=== PATIENT | female | born 1995 | race Caucasian/White ===

== ENCOUNTER → 2020-11-08 14:57 | Observation (INO) | END | disposition home or self-care (01) | LOC: 1NENULAB | PROVIDERS: ADMIT Advanced Practice Midwife; ATTEND Advanced Practice Midwife ==

== ENCOUNTER → 2020-11-21 15:51 | Observation (INO) ==
[2020-11-21 13:46] LABS: Basophils % 0.3 %; Eosinophils % 0.2 %; Hematocrit 30.3 % (35.3-44.9); Hemoglobin 9.8 g/dL (11.5-15.4); Immature Granulocytes % 0.5 % (0-4); Lymphocytes # 1.2 K/mcL (0.6-4.6); Lymphocytes % 12.2 %; Mean Corpuscular HGB Conc 32.3 g/dL (31.6-35.5); Mean Corpuscular Hemoglobin 28.7 pg (28.0-33.3); Mean Corpuscular Volume 88.9 fL (83.0-100.0); Mean Platelet Volume 12.1 fL (9.4-12.4); Monocytes # 0.7 K/mcL (0.0-1.3); Monocytes % 7.2 %; Neutrophils # 7.5 K/mcL (1.6-8.9); Platelet Count 201 K/mcL (140-400); Red Blood Count 3.41 M/mcL (3.82-4.97); Red Cell Distribution Width 12.5 % (11.5-14.5); Segmented Neutrophils % 79.6 %; White Blood Count 9.5 K/mcL (4.3-11.1)
[2020-11-21 14:06] LABS: Alanine Aminotransferase 16 Units/L (7-52); Aspartate Amino Transferase 17 Units/L (13-39); BUN/Creatinine Ratio 15 (6-26); Blood Urea Nitrogen 8 mg/dL (6-20); Lactate Dehydrogenase 133 Units/L (140-271); eGFR For African Americans > 60 (> 60); eGFR For Non-African Americans > 60 (> 60)
[2020-11-21 15:28] LABS: Protein/Creatinine Ratio,Urine 0.17 mg/mg (0.00-0.20)
== END | disposition home or self-care (01) ==
LOC: 1NENULAB
PROVIDERS: ADMIT Obstetrics & Gynecology; ATTEND Obstetrics & Gynecology

== ENCOUNTER → 2020-11-22 18:55 | Observation (INO) ==
[2020-11-22 16:32] LABS: Bilirubin,Urine Negative (Negative); Blood,Urine Negative (Negative); Clarity,Urine Turbid (Clear); Color,Urine Yellow (Yellow); Glucose,Urine (UA) Normal (Normal); Ketones,Urine Negative (Negative); Leukocyte Esterase,Urine Negative (Negative); Nitrite,Urine Negative (Negative); Protein,Urine 30 mg/dL (Neg-Trace); Specific Gravity,Urine 1.026 (1.010-1.025)
[2020-11-22 16:36] LABS: Bacteria,Urine Few per hpf (None-Few); Mucus,Urine Few per lpf (None-Few); RBC,Urine 0-3 per hpf (0-3); Squamous Epithelial Cell,Urine Moderate per hpf (None-Few); WBC,Urine 0-3 per hpf (0-3)
[2020-11-22 16:54] LABS: Basophils % 0.3 %; Eosinophils % 0.1 %; Hematocrit 29.5 % (35.3-44.9); Hemoglobin 10.1 g/dL (11.5-15.4); Immature Granulocytes % 0.7 % (0-4); Lymphocytes # 1.5 K/mcL (0.6-4.6); Lymphocytes % 19.6 %; Mean Corpuscular HGB Conc 34.2 g/dL (31.6-35.5); Mean Corpuscular Hemoglobin 30.1 pg (28.0-33.3); Mean Corpuscular Volume 87.8 fL (83.0-100.0); Mean Platelet Volume 11.7 fL (9.4-12.4); Monocytes # 0.6 K/mcL (0.0-1.3); Monocytes % 8.1 %; Neutrophils # 5.4 K/mcL (1.6-8.9); Platelet Count 201 K/mcL (140-400); Red Blood Count 3.36 M/mcL (3.82-4.97); Red Cell Distribution Width 12.6 % (11.5-14.5); Segmented Neutrophils % 71.2 %; White Blood Count 7.6 K/mcL (4.3-11.1)
[2020-11-22 16:56] LABS: Protein/Creatinine Ratio,Urine 0.24 mg/mg (0.00-0.20)
[2020-11-22 17:13] LABS: Alanine Aminotransferase 15 Units/L (7-52); Aspartate Amino Transferase 15 Units/L (13-39); BUN/Creatinine Ratio 13 (6-26); Blood Urea Nitrogen 8 mg/dL (6-20); Lactate Dehydrogenase 152 Units/L (140-271); Uric Acid 5.4 mg/dL (2.3-7.6); eGFR For African Americans > 60 (> 60); eGFR For Non-African Americans > 60 (> 60)
[~2020-11-22 18:55] MED LIST: *HR* Labetalol 20 MG/4 ML SYRINGE IVP ONE; Betamethasone Acet/SodPhos 30 MG/5 ML VIAL IM SCH; LOVENOX SUBQ SCH; Prenatal Vit/FA 1 EACH TABLET PO SCH
== END | disposition home or self-care (01) ==
LOC: 1NENULAB
PROVIDERS: ADMIT Obstetrics & Gynecology; ATTEND Obstetrics & Gynecology

== ENCOUNTER 2020-11-24 12:01 | Inpatient (IN) ==
[2020-11-23 18:52] LABS: Basophils % 0.3 %; Hematocrit 29.9 % (35.3-44.9); Hemoglobin 9.7 g/dL (11.5-15.4); Immature Granulocytes % 1.1 % (0-4); Lymphocytes # 1.6 K/mcL (0.6-4.6); Lymphocytes % 17.2 %; Mean Corpuscular HGB Conc 32.4 g/dL (31.6-35.5); Mean Corpuscular Hemoglobin 28.4 pg (28.0-33.3); Mean Corpuscular Volume 87.7 fL (83.0-100.0); Mean Platelet Volume 11.6 fL (9.4-12.4); Monocytes # 0.7 K/mcL (0.0-1.3); Monocytes % 7.4 %; Neutrophils # 6.9 K/mcL (1.6-8.9); Platelet Count 202 K/mcL (140-400); Red Blood Count 3.41 M/mcL (3.82-4.97); Red Cell Distribution Width 12.7 % (11.5-14.5); White Blood Count 9.3 K/mcL (4.3-11.1)
[2020-11-23 19:05] LABS: Protein/Creatinine Ratio,Urine 0.61 mg/mg (0.00-0.20)
[2020-11-23 19:17] LABS: Alanine Aminotransferase 13 Units/L (7-52); Aspartate Amino Transferase 13 Units/L (13-39); BUN/Creatinine Ratio 16 (6-26); Blood Urea Nitrogen 10 mg/dL (6-20); Lactate Dehydrogenase 133 Units/L (140-271); Uric Acid 5.2 mg/dL (2.3-7.6); eGFR For African Americans > 60 (> 60); eGFR For Non-African Americans > 60 (> 60)
[2020-11-23 20:30] LABS: Bacteria,Urine Few per hpf (None-Few); Bilirubin,Urine Negative (Negative); Blood,Urine Negative (Negative); Calcium Oxalate Crystals,Urine Present per hpf; Clarity,Urine Turbid (Clear); Color,Urine Yellow (Yellow); Glucose,Urine (UA) Normal (Normal); Ketones,Urine Trace mg/dL (Negative); Leukocyte Esterase,Urine Negative (Negative); Mucus,Urine Few per lpf (None-Few); Nitrite,Urine Negative (Negative); Protein,Urine 100 mg/dL (Neg-Trace); Specific Gravity,Urine > 1.030 (1.010-1.025); Squamous Epithelial Cell,Urine Moderate per hpf (None-Few)
[2020-11-24 09:44] LABS: Protein/Creatinine Ratio,Urine 0.56 mg/mg (0.00-0.20)
[2020-11-24 10:18] LABS: Basophils % 0.4 %; Hematocrit 28.7 % (35.3-44.9); Hemoglobin 9.3 g/dL (11.5-15.4); Immature Granulocytes % 2.3 % (0-4); Lymphocytes # 1.1 K/mcL (0.6-4.6); Lymphocytes % 12.7 %; Mean Corpuscular HGB Conc 32.4 g/dL (31.6-35.5); Mean Corpuscular Hemoglobin 28.6 pg (28.0-33.3); Mean Corpuscular Volume 88.3 fL (83.0-100.0); Monocytes # 0.3 K/mcL (0.0-1.3); Monocytes % 3.3 %; Neutrophils # 6.7 K/mcL (1.6-8.9); Platelet Count 186 K/mcL (140-400); Red Blood Count 3.25 M/mcL (3.82-4.97); Red Cell Distribution Width 12.8 % (11.5-14.5); Segmented Neutrophils % 81.3 %; White Blood Count 8.3 K/mcL (4.3-11.1)
[2020-11-24 10:41] LABS: Aspartate Amino Transferase 15 Units/L (13-39); BUN/Creatinine Ratio 17 (6-26); Blood Urea Nitrogen 10 mg/dL (6-20); Lactate Dehydrogenase 135 Units/L (140-271); Uric Acid 5.2 mg/dL (2.3-7.6); eGFR For African Americans > 60 (> 60); eGFR For Non-African Americans > 60 (> 60)
[~2020-11-24 12:01] MED LIST changes: +Betamethasone Acet/SodPhos 30 MG/5 ML VIAL IM ONE; -Betamethasone Acet/SodPhos 30 MG/5 ML VIAL IM SCH; +Calcium Gluconate 1,000 MG/10 ML VIAL IVP PRN; +Iron Sucrose Complex 200 MG in 0.9 % Sodium Chloride 100 ML IVPB ONE; -LOVENOX SUBQ SCH; +Metoclopramide 10 MG/2 ML VIAL IVP PRN; +Metoclopramide 10 MG/2 ML VIAL IVP SCH; -Prenatal Vit/FA 1 EACH TABLET PO SCH; +Ringers Solution, Lactated 1,000 ML ONE
[2020-11-24] MEDS: Magnesium Sulf 20 gm/SW 500mL 20 GM/500 ML IV.SOLN IVC SCH ×2 (12:14→21:57)
[2020-11-24] MEDS ORDERED: Vancomycin 1,750 MG/517.5 ML IV.SOLN IVPB SCH (12:16)
[2020-11-24] MEDS ORDERED: miSOPROStoL 25 MCG TABLET PO PRN (12:28)
[2020-11-24] MEDS ORDERED: EPHEDrine 50 MG/ML VIAL IVP PRN (13:46)
[2020-11-24] MEDS ORDERED: Epidural Premix (fent/bupiv) 110 ML EP SCH (14:00)
[2020-11-24] MEDS ORDERED: Oxytocin 20 units/ LR 1000 mL 20 UNIT/1,000 ML BAG IVC ONE (18:51)
[2020-11-24] MEDS: Oxytocin 20 units/ LR 1000 mL 20 UNIT/1,000 ML BAG IVC SCH (18:55)
[2020-11-24] MEDS ORDERED: Ringers Solution, Lactated 1,000 ML ONE (21:45)
[2020-11-25 04:42] LABS: Basophils % 0.3 %; Hematocrit 28.3 % (35.3-44.9); Hemoglobin 9.3 g/dL (11.5-15.4); Immature Granulocytes % 1.6 % (0-4); Lymphocytes # 1.3 K/mcL (0.6-4.6); Lymphocytes % 12.2 %; Mean Corpuscular HGB Conc 32.9 g/dL (31.6-35.5); Mean Corpuscular Hemoglobin 28.6 pg (28.0-33.3); Mean Corpuscular Volume 87.1 fL (83.0-100.0); Mean Platelet Volume 11.7 fL (9.4-12.4); Monocytes # 0.6 K/mcL (0.0-1.3); Neutrophils # 8.3 K/mcL (1.6-8.9); Platelet Count 197 K/mcL (140-400); Red Blood Count 3.25 M/mcL (3.82-4.97); Red Cell Distribution Width 12.9 % (11.5-14.5); Segmented Neutrophils % 79.9 %; White Blood Count 10.4 K/mcL (4.3-11.1)
[2020-11-25 04:52] LABS: Alanine Aminotransferase 15 Units/L (7-52)
[2020-11-25] MEDS ORDERED: miSOPROStoL 25 MCG TABLET PO PRN (06:42)
[2020-11-25 07:08] LABS: Protein/Creatinine Ratio,Urine 0.41 mg/mg (0.00-0.20)
[2020-11-25] MEDS ORDERED: Ropivacaine/PF 0.2% 20 ML VIAL ONE (07:30)
[2020-11-25] MEDS ORDERED: Ringers Solution, Lactated 1,000 ML ONE ×2 (07:36→18:01)
[2020-11-25 09:04] LABS: Aspartate Amino Transferase 18 Units/L (13-39); BUN/Creatinine Ratio 15 (6-26); Blood Urea Nitrogen 8 mg/dL (6-20); Lactate Dehydrogenase 154 Units/L (140-271); Uric Acid 5.5 mg/dL (2.3-7.6); eGFR For African Americans > 60 (> 60); eGFR For Non-African Americans > 60 (> 60)
[2020-11-25] MEDS: Magnesium Sulf 20 gm/SW 500mL 20 GM/500 ML IV.SOLN IVC SCH ×2 (09:34→19:17)
[2020-11-25] MEDS: Oxytocin 20 units/ LR 1000 mL 20 UNIT/1,000 ML BAG IVC SCH (11:24)
[2020-11-25] MEDS ORDERED: Calcium Gluconate 1,000 MG/10 ML VIAL ONE (11:31)
[2020-11-26] MEDS ORDERED: *HR* Labetalol 20 MG/4 ML SYRINGE IVP ONE ×4 (03:23→06:36)
[2020-11-26 03:46] LABS: Alanine Aminotransferase 32 Units/L (7-52); Aspartate Amino Transferase 45 Units/L (13-39); BUN/Creatinine Ratio 15 (6-26); Blood Urea Nitrogen 9 mg/dL (6-20); Lactate Dehydrogenase 243 Units/L (140-271); Uric Acid 6.3 mg/dL (2.3-7.6); eGFR For African Americans > 60 (> 60); eGFR For Non-African Americans > 60 (> 60)
[2020-11-26] MEDS ORDERED: Ropivacaine/PF 0.2% 20 ML VIAL ONE (04:38)
[2020-11-26 04:49] LABS: Protein/Creatinine Ratio,Urine 2.47 mg/mg (0.00-0.20)
[2020-11-26] MEDS ORDERED: *HR* Succinylcholine 200 MG/10 ML VIAL IVP ONE (05:35)
[2020-11-26] MEDS ORDERED: Furosemide 40 MG/4 ML VIAL ONE (05:39)
[2020-11-26] MEDS ORDERED: Metoclopramide 10 MG/2 ML VIAL IVP ONE (05:40)
[2020-11-26] MEDS ORDERED: Clindamycin 900 MG/50 ML 900 MG/50 ML IV.SOLN IVPB ONE (05:40)
[2020-11-26] MEDS ORDERED: Famotidine 20 MG/2 ML VIAL IVP ONE (05:40)
[2020-11-26] MEDS ORDERED: Gentamicin 400 MG in 0.9 % Sodium Chloride 100 ML IVPB ONE (06:00)
[2020-11-26] MEDS ORDERED: *HR* Labetalol 20 MG/4 ML SYRINGE IVP STA (06:08)
[2020-11-26] MEDS ORDERED: Lidocaine -MPF 2% 5 ML VIAL ONE (08:18)
[2020-11-26] MEDS ORDERED: Furosemide 20 MG/2 ML VIAL IVP PRN (08:22)
[2020-11-26] MEDS ORDERED: Lidocaine 1% 20 ML MDV ONE (09:08)
[2020-11-26] MEDS ORDERED: Perflutren Lipid Microsphere 1.3 ML in 0.9 % Sodium Chloride 8.7 ML IVP PRN ×2 (09:29→12:27)
[2020-11-26] MEDS ORDERED: Furosemide 40 MG/4 ML VIAL IVP SCH (10:00)
[2020-11-26] MEDS ORDERED: Calcium Gluconate 1,000 MG/10 ML VIAL IVP PRN (12:27)
[2020-11-26] MEDS ORDERED: Oxytocin 20 units/ LR 1000 mL 20 UNIT/1,000 ML BAG IVC SCH (12:27)
[2020-11-26] MEDS: Acetaminophen 325 MG TABLET PO SCH ×2 (13:15→17:14)
[2020-11-26] MEDS: Ibuprofen 600 MG TABLET PO SCH ×2 (13:15→17:51)
[2020-11-26] MEDS: RINGERS LACTATED IVC SCH (15:03)
[2020-11-26] MEDS: OXYTOCIN 20 UNIT IVC SCH (15:03)
[2020-11-26] MEDS: *HR* Labetalol 20 MG/4 ML SYRINGE IVP SCH ×2 (15:21→19:24)
[2020-11-26] MEDS: Furosemide 20 MG/2 ML VIAL IVP SCH (15:21)
[2020-11-26] MEDS: Magnesium Sulf 20 gm/SW 500mL 20 GM/500 ML IV.SOLN IVC SCH (16:34)
[2020-11-27] MEDS: Ibuprofen 600 MG TABLET PO SCH ×5 (00:17→23:59)
[2020-11-27] MEDS: Acetaminophen 325 MG TABLET PO SCH ×5 (00:17→23:59)
[2020-11-27] MEDS: Furosemide 20 MG/2 ML VIAL IVP SCH ×4 (00:17→23:59)
[2020-11-27] MEDS: Magnesium Sulf 20 gm/SW 500mL 20 GM/500 ML IV.SOLN IVC SCH (03:08)
[2020-11-27] MEDS: RINGERS LACTATED IVC SCH (03:08)
[2020-11-27] MEDS: OXYTOCIN 20 UNIT IVC SCH (03:08)
[2020-11-27 04:22] LABS: Basophils % 0.4 %; Eosinophils % 0.4 %; Hematocrit 28.1 % (35.3-44.9); Hemoglobin 9.2 g/dL (11.5-15.4); Immature Granulocytes % 1.1 % (0-4); Lymphocytes # 1.3 K/mcL (0.6-4.6); Lymphocytes % 11.2 %; Mean Corpuscular HGB Conc 32.7 g/dL (31.6-35.5); Mean Corpuscular Hemoglobin 28.8 pg (28.0-33.3); Mean Corpuscular Volume 88.1 fL (83.0-100.0); Mean Platelet Volume 11.2 fL (9.4-12.4); Monocytes # 0.6 K/mcL (0.0-1.3); Monocytes % 5.6 %; Neutrophils # 9.1 K/mcL (1.6-8.9); Platelet Count 161 K/mcL (140-400); Red Blood Count 3.19 M/mcL (3.82-4.97); Red Cell Distribution Width 13.2 % (11.5-14.5); Segmented Neutrophils % 81.3 %; White Blood Count 11.2 K/mcL (4.3-11.1)
[2020-11-27 04:31] LABS: Alanine Aminotransferase 23 Units/L (7-52); Aspartate Amino Transferase 23 Units/L (13-39); BUN/Creatinine Ratio 20 (6-26); Blood Urea Nitrogen 17 mg/dL (6-20); eGFR For African Americans > 60 (> 60); eGFR For Non-African Americans > 60 (> 60)
[2020-11-27 04:32] LABS: BUN/Creatinine Ratio 20 (6-26); Blood Urea Nitrogen 17 mg/dL (6-20); Calcium 7.4 mg/dL (8.6-10.3); Carbon Dioxide 25 mEq/L (23-29); Chloride 102 mEq/L (98-107); Glucose 82 mg/dL (70-105); Magnesium 6.6 mg/dL (1.6-2.6); Osmolality,Calculated 281 (280-300); Potassium 3.4 mEq/L (3.5-5.1); Sodium 135 mEq/L (136-145); eGFR For African Americans > 60 (> 60); eGFR For Non-African Americans > 60 (> 60)
[2020-11-27] MEDS: *HR* Labetalol 20 MG/4 ML SYRINGE IVP SCH ×3 (07:11→14:26)
[2020-11-27] MEDS ORDERED: hydrALAZINE 25 MG TABLET PO PRN (08:37)
[2020-11-27] MEDS ORDERED: Calcium Gluconate 1gm/50mL 1 GM/50 ML BAG IVPB SCH (09:00)
[2020-11-27] MEDS ORDERED: Prenatal Vit/FA 1 EACH TABLET PO SCH (09:00)
[2020-11-27 11:05] LABS: Magnesium 6.2 mg/dL (1.6-2.6)
[2020-11-27 11:42] LABS: BUN/Creatinine Ratio 22 (6-26); Blood Urea Nitrogen 19 mg/dL (6-20); Calcium 7.9 mg/dL (8.6-10.3); Carbon Dioxide 26 mEq/L (23-29); Chloride 102 mEq/L (98-107); Glucose 110 mg/dL (70-105); Osmolality,Calculated 285 (280-300); Potassium 3.5 mEq/L (3.5-5.1); Sodium 136 mEq/L (136-145); eGFR For African Americans > 60 (> 60); eGFR For Non-African Americans > 60 (> 60)
[2020-11-27 12:27] LABS: Basophils % 0.3 %; Eosinophils # 0.1 K/mcL (0.0-0.6); Eosinophils % 0.9 %; Immature Granulocytes % 1.1 % (0-4); Lymphocytes # 1.1 K/mcL (0.6-4.6); Lymphocytes % 11.4 %; Mean Corpuscular HGB Conc 32.1 g/dL (31.6-35.5); Mean Corpuscular Hemoglobin 28.8 pg (28.0-33.3); Mean Corpuscular Volume 89.7 fL (83.0-100.0); Mean Platelet Volume 11.2 fL (9.4-12.4); Monocytes # 0.6 K/mcL (0.0-1.3); Neutrophils # 7.6 K/mcL (1.6-8.9); Platelet Count 190 K/mcL (140-400); Red Blood Count 3.12 M/mcL (3.82-4.97); Red Cell Distribution Width 13.2 % (11.5-14.5); Segmented Neutrophils % 80.3 %; White Blood Count 9.4 K/mcL (4.3-11.1)
[2020-11-27] MEDS ORDERED: *HR* Labetalol 20 MG/4 ML SYRINGE IVP PRN (15:15)
[2020-11-27] MEDS ORDERED: hydrALAZINE 25 MG TABLET PO SCH (16:00)
[2020-11-27] MEDS: hydrALAZINE 25 MG TABLET PO SCH ×2 (17:46→23:36)
[2020-11-27] MEDS ORDERED: NIFEdipine XL (24 HR) 60 MG TAB.ER.24 PO SCH (21:00)
[2020-11-28] MEDS ORDERED: Calcium Gluconate 1,000 MG/10 ML VIAL IVP PRN (00:43)
[2020-11-28] MEDS ORDERED: Acetaminophen 325 MG TABLET PO SCH (06:00)
[2020-11-28] MEDS ORDERED: Ibuprofen 600 MG TABLET PO SCH (06:00)
[2020-11-28] MEDS ORDERED: hydrALAZINE 25 MG TABLET PO SCH (06:00)
[2020-11-28] MEDS ORDERED: Prenatal Vit/FA 1 EACH TABLET PO SCH (08:00)
[2020-11-28] MEDS ORDERED: Furosemide 20 MG/2 ML VIAL IVP SCH (08:00)
[2020-11-28 08:59] LABS: BUN/Creatinine Ratio 29 (6-26); Blood Urea Nitrogen 20 mg/dL (6-20); Carbon Dioxide 28 mEq/L (23-29); Chloride 101 mEq/L (98-107); Glucose 72 mg/dL (70-105); Magnesium 2.2 mg/dL (1.6-2.6); Osmolality,Calculated 287 (280-300); Potassium 3.3 mEq/L (3.5-5.1); Sodium 138 mEq/L (136-145); eGFR For African Americans > 60 (> 60); eGFR For Non-African Americans > 60 (> 60)
[2020-11-28] MEDS ORDERED: NIFEdipine XL (24 HR) 60 MG TAB.ER.24 PO SCH (09:00)
[2020-11-28] MEDS ORDERED: NIFEdipine XL (24 HR) 30 MG TAB.ER.24 PO SCH (09:00)
[2020-11-28 11:25] VITALS: BP 132/78
== END 2020-11-28 14:37 | disposition home or self-care (01) | DRG 806 ==
LOC: 1NENULAB → SUATTDRO 17:57 → ICNU 11-26 12:07 → 1NENUOBS 11-28 00:32
PROVIDERS: ADMIT Registered Nurse; ATTEND Student in an Organized Health Care Education/Training Program